=== PATIENT | female | born 1980 | race Caucasian/White ===

== ENCOUNTER 2019-05-07 05:51 | Inpatient (IN) | payer MEDICAID ==
[~2019-05-07] VITALS: Ht 162.6 cm; Wt 77.8 kg
[2019-05-07] MEDS ORDERED: morphine 2 MG INJ IV STA (05:56)
--- NOTE | 2019-05-07 06:07 | ERD ---
ER Documentation Chief Complaint Chief Complaint BIB private EMS from [facility] d/t incomplete AB HPI 39-year-old female presents the emergency department on transfer from a local emergency department for an incomplete miscarriage. Patient states that she was having vaginal bleeding and pelvic pain. She presented to an outside emergency department where an incomplete miscarriage was diagnosed. She was transferred here for OB definitive care. Upon arrival, she is having mild pelvic cramping. She reports no further bleeding. Records from the outside facility were reviewed in detail. ROS All systems reviewed and are negative except as per history of present illness. PMhx/Soc Medical and Surgical Hx: pt denies Medical Hx, pt denies Surgical Hx Hx Alcohol Use: No Hx Substance Use: No Hx Tobacco Use: No Smoking Status: Never smoker FmHx Noncontributory for chief complaint Physical Exam Vitals Vital Signs Date Temp Pulse Resp B/P (MAP) Pulse Ox O2 O2 Flow FiO2 Time Delivery Rate 05/07/19 98.7 84 26 133/86 99 05:53 (102) Physical Exam GENERAL: The patient is well developed and appropriate for usual state of health in no apparent distress HEENT: Pupils equal, round, and reactive to light. EOMI. There is no scleral icterus. NECK: C-spine is soft and supple, there is no meningismus. There is no cervical lymphadenopathy. LUNGS: Clear to auscultation bilaterally. There are no rales, wheezes or rhonchi. HEART: Regular rate and rhythm, no murmurs, clicks, rubs or gallops. ABDOMEN: Soft, non-tender, non-distended. There are bowel sounds in all four quadrants. No rebound or guarding. EXTREMITIES: There is no peripheral cyanosis or edema. No focal swelling or erythema. NEURO: The patient moves all four extremities with 5/5 strength. Cranial nerves II - XII are intact. Normal gait. Alert and oriented SKIN: There is no apparent rash or petechiae. HEME/LYMPHATIC: There is no evidence of excessive bruising or lymphedema. PSYCHIATRIC: The patient does not appear anxious or depressed. Results 24 hrs Current Medications Medications Dose Sig/Oskar Start Time Status Last (Trade) Ordered Route PRN Stop Time Admin Dose Reason Admin Morphine 2 mg ONCE STAT 05/07/19 DC Sulfate IV 05:56 (morphine) 05/07/19 05:57 Procedures/MDM Patient was taken to a room, seen and examined. MSE was completed. Patient remained stable. Arrangements were made for admission. Medical decision makin-year-old female presents the emergency room with incomplete miscarriage. Plan is to continue comfort measures pending operative D&C procedure. Departure Diagnosis: Primary Impression: Incomplete miscarriage Condition: HORTENCIA Ghotra May 07, 2019 06:07
[2019-05-07 06:49] VITALS: BP 149/71; PULSE 77; RESP 20
[2019-05-07 09:57] VITALS: Ht 162.6 cm; Wt 77.8 kg
[2019-05-07] MEDS ORDERED: LACTATED RINGER'S 1,000 ML IV STA (10:27)
[2019-05-07] MEDS ORDERED: morphine 2 MG INJ IV PRN (10:30)
[2019-05-07] MEDS ORDERED: OXYTOCIN 30 UNITS/LR 500 ML IV SCH (10:30)
[2019-05-07] MEDS ORDERED: CEFAZOLIN 2 GM/50 ML (PMX) 50 ML IVPB ONE (11:30)
[2019-05-07 14:44] VITALS: BP 137/79; PULSE 69; RESP 18
[2019-05-07] MEDS ORDERED: OXYCODONE/ACETAMINOPHEN (5/325) TAB PO PRN ×2 (15:00)
[2019-05-07] MEDS ORDERED: IBUPROFEN 800 MG TAB PO PRN (15:00)
--- NOTE | 2019-05-07 15:12 | HP ---
Date/Time of Note Date/Time of Note DATE: 05/07/19 TIME: 15:09 Assessment/Plan VTE Prophylaxis SCD applied (from Nsg): No SCD contraindicated: other (Patient is ambulating) Pharmacological prophylaxis: other (Patient is ambulating) Lines/Catheters IV Catheter Type (from Nrsg): Saline Lock Assessment/Plan Assessment/Plan Status post SAB We will give Methergine p.o. every 6 hours for total of 24 hours Repeat quantitative beta-hCG in a.m. Urine culture pending Result Diagram: 05/07/19 1106 05/07/19 1106 Results 24hrs Laboratory Tests Test 05/07/19 11:06 05/07/19 13:15 White Blood Count 10.0 Red Blood Count 3.94 L Hemoglobin 10.2 L Hematocrit 30.4 L Mean Corpuscular Volume 77.2 L Mean Corpuscular Hemoglobin 25.9 L Mean Corpuscular Hemoglobin Concent 33.6 Red Cell Distribution Width 15.8 H Platelet Count 378 Mean Platelet Volume 9.5 Immature Granulocytes % 0.500 H Neutrophils % 75.2 Lymphocytes % 17.6 Monocytes % 5.5 Eosinophils % 1.0 Basophils % 0.2 Nucleated Red Blood Cells % 0.0 Immature Granulocytes # 0.050 H Neutrophils # 7.5 Lymphocytes # 1.8 Monocytes # 0.6 Eosinophils # 0.1 Basophils # 0.0 Nucleated Red Blood Cells # 0.0 Sodium Level 140 Potassium Level 4.3 Chloride Level 106 Carbon Dioxide Level 24 Anion Gap 10 Blood Urea Nitrogen 5 L Creatinine 0.53 Est Glomerular Filtrat Rate mL/min > 60 Glucose Level 82 Calcium Level 9.1 Total Bilirubin 0.2 Direct Bilirubin 0.00 Indirect Bilirubin 0.2 Aspartate Amino Transf (AST/SGOT) 19 Alanine Aminotransferase (ALT/SGPT) 19 Alkaline Phosphatase 68 Total Protein 6.7 Albumin 3.5 Globulin 3.20 Albumin/Globulin Ratio 1.09 Beta HCG, Quantitative 26232.0 Urine Color YELLOW Urine Clarity CLEAR Urine pH 6.0 Urine Specific [place] 1.014 Urine Ketones NEGATIVE Urine Nitrite NEGATIVE Urine Bilirubin NEGATIVE Urine Urobilinogen NEGATIVE Urine Leukocyte Esterase 2+ H Urine Microscopic RBC 1 Urine Microscopic WBC 2 Urine Squamous Epithelial Cells FEW Urine Hemoglobin 3+ H Urine Glucose NEGATIVE Urine Total Protein NEGATIVE HPI/ROS Admit Date/Time Admit Date/Time May 07, 2019 at 06:08 Hx of Present Illness 39-year-old 4 para 3 status post complete SAB transferred here from [facility] for further management Patient reports that she passed the fetus at [facility] She currently reports minimal vaginal bleeding, patient reports pelvic pain and cramping Patient's history significant for fibroids ROS Constitutional: no complaints, improved Eyes: no complaints ENT: no complaints Respiratory: no complaints Cardiovascular: no complaints Gastrointestinal: no complaints Genitourinary: other (Minimal vaginal bleeding) Musculoskeletal: no complaints Skin: no complaints Neurologic: no complaints Endocrine: no complaints Lymphatic: no complaints Psychological: no complaints, nl mood/affect Immunologic: no complaints PMH/Family/Social Past Medical History Medical History: other (Fibroids) Medications Current Medications Lactated Ringer's 1,000 ml @ 125 mls/hr Q8H STAT IV ; Start 05/07/19 at 10:27; Stop 05/07/19 at 18:26 Morphine Sulfate (morphine) 2 mg Q6H PRN IV pain Last administered on 05/07/19at 11:26; Admin Dose 2 MG; Start 05/07/19 at 10:30 Ibuprofen (Motrin) 800 mg Q8H PRN PO MILD PAIN LEVEL 1-3; Start 05/07/19 at 15:00 Oxycodone/ Acetaminophen (Percocet (5/ 325)) 2 tab Q6H PRN PO SEVERE PAIN; Start 05/07/19 at 15:00 Oxycodone/ Acetaminophen (Percocet (5/ 325)) 1 tab Q6H PRN PO MODERATE PAIN LEVEL 4-6; Start 05/07/19 at 15:00 Coded Allergies: No Known Allergy (Unverified , 05/07/19) Past Surgical History Past Surgical Hx: no surgical history Family History Significant Family History: no pertinent family hx Social History Alcohol Use: none Smoking Status: Never smoker Drug Use: none Exam/Review of Systems Vital Signs Vitals Vital Signs Date Temp Pulse Resp B/P (MAP) Pulse Ox O2 O2 Flow FiO2 Time Delivery Rate 05/07/19 99.0 69 18 137/79 98 Room Air 14:44 (98) Exam Constitutional: alert, oriented, well developed Psych: no complaints, nl mood/affect Head: normocephalic, atraumatic Eyes: nl conjunctiva, EOMI, nl lids, nl sclera, PERRL ENMT: nl external ears & nose, nl lips & teeth, nl nasal mucosa & septum Neck: supple, non-tender Respiratory: clear to auscultation, normal air movement Cardiovascular: regular rate and rhythm, nl pulses Gastrointestinal: soft, nl liver, spleen, non-tender Genitourinary - Female: uterus (Uterus enlarged to 22 weeks size) Musculoskeletal: nl extremities to inspection Extremities: normal pulses Neurological: STEEL ERECTING PUSHER II-XII intact, nl mental status, nl speech, nl strength Skin: nl turgor; No rash or lesions Lymph: nl lymph nodes Additional Comments PROCEDURE: US Pelvis. CLINICAL INDICATION: Incomplete miscarriage. Retained products. TECHNIQUE: Multiple sonographic images of the pelvis were obtained utilizing a transabdominal and endovaginal technique. The images were reviewed on a PACS workstation. COMPARISON: None. FINDINGS: The uterus is anteverted and measures 19.1 x 13.6 x 13.7 cm. There is a bulbous contour to the uterus secondary to an intramural fibroid measuring 9.4 x 9.3 x 9.4 cm. The endometrial stripe complex was not measured but does not appear to be enlarged and there is no hyperemia to suggest retained products. No fluid is seen in the canal. Ovaries were not visualized. No solid pelvic masses seen. There is no free fluid in the pelvis. IMPRESSION: No evidence of retained products of conception. Enlarged fibroid uterus. Nonvisualization ovaries. .Sharif Elias MD, MD Date Time Electronically viewed and signed by .Sharif Elias MD, on 05/07/2019 13:30 .A/ CC: KAREEM JENKINS MD [id number] KAREEM JENKINS MD May 07, 2019 15:12
[2019-05-07] MEDS ORDERED: METHYLERGONOVINE 0.2 MG TAB PO PRN (16:00)
[2019-05-07] MEDS: METHYLERGONOVINE 0.2 MG TAB PO SCH ×2 (18:25→22:02)
[2019-05-07 19:57] VITALS: BP 140/76; PULSE 74; RESP 18
[2019-05-08] VITALS (26 sets, daily range): BP systolic 91–138; BP diastolic 44–77; PULSE 64–82; RESP 16–28
[2019-05-08] MEDS: METHYLERGONOVINE 0.2 MG TAB PO SCH ×4 (04:16→22:05)
[2019-05-08] MEDS ORDERED: BUTORPHANOL 2 MG INJ IV PRN (12:00)
[2019-05-08] MEDS ORDERED: MIDAZOLAM 1 MG/ML 2 ML INJ ONE (16:01)
[2019-05-08] MEDS ORDERED: morphine SULFATE/PF (10 MG/10 ML) INJ ONE (16:01)
--- NOTE | 2019-05-08 16:05 | PREAC ---
Date/Time of Note Date/Time of Note DATE: 05/08/19 TIME: 16:03 Anesthesia Eval and Record Evaluation Time Pre-Procedure Interview DATE: 05/08/19 TIME: 16:00 Age 39 Sex female NPO: 8 hrs Preoperative diagnosis iup @ 12 wks., sab, incomplete Planned procedure suction D&C Past Medical History Past Medical History: Includes : Other (sab) Surgery & Anesthesia Issues No known issue Meds Anticoagulation: No Beta Deanna within 24 hr: No Reason Beta Deanna not given: Pt. not on B-Deanna Current Medications Ibuprofen (Motrin) 800 mg Q8H PRN PO MILD PAIN LEVEL 1-3; Start 05/07/19 at 15:00 Oxycodone/ Acetaminophen (Percocet (5/ 325)) 2 tab Q6H PRN PO SEVERE PAIN; Start 05/07/19 at 15:00 Oxycodone/ Acetaminophen (Percocet (5/ 325)) 1 tab Q6H PRN PO MODERATE PAIN LEVEL 4-6 Last administered on 05/07/19at 17:08; Admin Dose 1 TAB; Start 05/07/19 at 15:00 Methylergonovine Maleate (Methergine) 0.2 mg Q6H PO Last administered on 05/08/19at 04:16; Admin Dose 0.2 MG; Start 05/07/19 at 16:00 Butorphanol Tartrate (Stadol) 1 mg Q4H PRN IV PAIN Last administered on 05/08/19at 13:25; Admin Dose 1 MG; Start 05/08/19 at 12:00 Meds reviewed: Yes Allergies Coded Allergies: No Known Allergy (Unverified , 05/07/19) Allergies Reviewed: Yes Labs/Studies Labs Reviewed: Reviewed by anesthesiologist Result Diagram: 05/08/19 1026 05/08/19 1025 Laboratory Tests 05/08/19 10:25 05/08/19 10:26 test: Positive Studies: ECG (n/a), CXR (n/a) Pre-procedure Exam Last vitals Vital Signs Date Temp Pulse Resp B/P (MAP) Pulse Ox O2 O2 Flow FiO2 Time Delivery Rate 05/08/19 98.4 72 16 132/68 96 Room Air 14:15 (89) Airway: Adequate mouth opening, Adequate thyromental dist Mallampati: Mallampati II Teeth: Normal Lung: Normal Heart: Normal ASA Physical Status ASA physical status: 2 Emergency: E Planned Anesthetic General/MAC: MAC Neuraxial: Spinal Planned Pain Management Sub-arachniod narcotics, Parenteral pain med Pre-operative Attestations Prior to commencing anesthesia and surgery, the patient was re-evaluated, there was verification of: *The patient's identity *The results of appropriate recent lab work and preoperative vital signs *The above evaluation not changing prior to induction *Anesthetic plan, risk benefits, alternative and complications discussed with patient/family; questions answered; patient/family understands, accepts and wishes to proceed. [employer] used CLARENCE PONCE MD May 08, 2019 16:05
[2019-05-08] MEDS ORDERED: ONDANSETRON 4 MG INJ ONE (16:23)
[2019-05-08] MEDS ORDERED: CEFAZOLIN 1 GM INJ ONE (16:23)
[2019-05-08] MEDS ORDERED: KETOROLAC 30 MG INJ IV PRN ×2 (16:30→17:00)
[2019-05-08] MEDS ORDERED: MIDAZOLAM 1 MG/ML 2 ML INJ IV PRN (16:30)
[2019-05-08] MEDS ORDERED: MEPERIDINE 25 MG INJ IV PRN (16:30)
[2019-05-08] MEDS ORDERED: DIPHENHYDRAMINE 50 MG INJ IV PRN ×2 (16:30→17:00)
[2019-05-08] MEDS ORDERED: ONDANSETRON 4 MG INJ IV PRN ×2 (16:30→17:00)
[2019-05-08] MEDS ORDERED: OXYTOCIN 10 UNIT INJ ONE (16:32)
--- NOTE | 2019-05-08 16:32 | QN ---
Documentation Comment H&P update 42 yo with incomplete consented for D&C&Suction KULDIP RODRIGUEZ M.D. May 08, 2019 16:32
--- NOTE | 2019-05-08 16:46 | OPPN ---
Date/Time of Note Date/Time of Note DATE: 05/08/19 TIME: 16:43 Operative Report Preoperative Diagnosis Incomplete Postoperative Diagnosis same Operation/Procedure Performed D&C&Suction Surgeon see signature line daycare assistant none Anesthesia: general Estimated blood loss: 10 - 50 ml's Transfusion Required none Specimen POC Grafts/Implants none Complications none KULDIP RODRIGUEZ M.D. May 08, 2019 16:46
--- NOTE | 2019-05-08 16:49 | PAC ---
Date/Time of Note Date/Time of Note DATE: 05/08/19 TIME: 16:49 Post-Anesthesia Notes Post-Anesthesia Note Last documented vital signs Vital Signs Date Temp Pulse Resp B/P (MAP) Pulse Ox O2 O2 Flow FiO2 Time Delivery Rate 05/08/19 98.4 72 16 132/68 96 Room Air 14:15 (89) Activity: WNL Respiratory function: WNL Cardiovascular function: WNL Mental status: Baseline Pain reasonably controlled: Yes Hydration appropriate: Yes Nausea/Vomiting absent: Yes CLARENCE PONCE MD May 08, 2019 16:49
--- NOTE | 2019-05-08 16:54 | OPPN ---
Date/Time of Note Date/Time of Note DATE: 05/09/19 TIME: 00:05 Anesthesia Follow up Anesthesia Follow up Last documented vital signs Vital Signs Date Temp Pulse Resp B/P (MAP) Pulse Ox O2 O2 Flow FiO2 Time Delivery Rate 05/08/19 98.4 72 16 132/68 96 Room Air 14:15 (89) Respiratory function: WNL Cardiovascular function: WNL Comments pt. pod #1. min. bt pain. min. n/v. min. need for bt pain meds ie. nsaids/opiates. ambulating. O: vss, afeb. A: min. bt pain sec. it mso4. P: no complications. CLARENCE PONCE MD May 08, 2019 16:54
[2019-05-08] MEDS ORDERED: ACETAMINOPHEN 500 MG TAB PO PRN (17:00)
[2019-05-08] MEDS ORDERED: NALOXONE (0.4 MG/ML) INJ IV PRN (17:00)
[2019-05-08] MEDS ORDERED: HYDROmorphONE 0.5 MG/0.5 ML SYG IV PRN ×2 (17:00)
[2019-05-08] MEDS ORDERED: NALBUPHINE HCL (10 MG/1 ML) INJ IV PRN (17:00)
[2019-05-08] MEDS ORDERED: HYDROCODONE/APAP (5/325) TAB PO PRN (17:00)
--- NOTE | 2019-05-08 17:51 | OPR ---
DATE OF OPERATION: PREOPERATIVE DIAGNOSIS: Incomplete . POSTOPERATIVE DIAGNOSIS: Incomplete . PROCEDURE: Dilation and curettage and suction. ANESTHESIA: General ATTENDING SURGEON: Dr. Queen. ANESTHESIOLOGIST: ____ ESTIMATED BLOOD LOSS: Minimal. TECHNIQUE: The patient was taken to the operating room, where general anesthesia was found to be glen quate. The patient was placed in dorsal lithotomy position. After prep and drape, the weighted spec ulum was placed inside the vaginal vault. Anterior lip of the cervix was grasped by single-tooth ten aculum. Cervix was dilated by Leahy dilators. The cervix was 2 cm, open. Suction size 8 was insert ed. Intrauterine cavity was suctioned. Sharp curettage of endometrial cavity was done. Hemostasis achieved. The patient tolerated the procedure well and was transferred to the recovery room in stabl e condition. There was no complication regarding this surgery. Dictated By: KULDIP LOCKETT/JACK Conf#: [id number] DID#: [id number] CC: LIDIA CISSE MD;*EndCC*
--- NOTE | 2019-05-08 17:53 | HP ---
DATE OF ADMISSION: 05/07/2019 HISTORY OF PRESENT ILLNESS: This is a 39-year-old with diagnosis of incomplete . admitted th rough the emergency room. The patient has some retained products of conception, and the hCG dropped from yesterday to 50,000 to only 43,000 today. The patient was consented for D and C and suction. A lternatives discussed. Risks and benefits of alternatives discussed. PAST MEDICAL HISTORY: Denies. PAST SURGICAL HISTORY: Denies. ALLERGIES: NKDA. OBSTETRICAL AND GYNECOLOGIC HISTORY: The patient has history of fibroid uterus. ASSESSMENT AND PLAN: A 39-year-old with diagnosis of incomplete . Discussed with the patien t surgical risks and benefits of procedure. The patient signed the consent, was taken to the operati ng room. Dictated By: KULDIP RODRIGUEZ MD RG/NTS Conf#: [id number] DID#: [id number] CC: LIDIA CISSE MD;*EndCC*
[2019-05-08] MEDS: LACTATED RINGER'S 1,000 ML IV SCH (17:56)
[2019-05-09 02:32] VITALS: BP 98/55; PULSE 70; RESP 18
[2019-05-09] MEDS: METHYLERGONOVINE 0.2 MG TAB PO SCH ×2 (04:13→09:21)
[2019-05-09 08:00] VITALS: BP 107/53; PULSE 80; RESP 16
[2019-05-09 14:30] VITALS: BP 106/58; PULSE 75; RESP 20
[2019-05-09] MEDS: LACTATED RINGER'S 1,000 ML IV SCH (17:42)
--- NOTE | 2019-05-09 19:30 | QN ---
Documentation Comment Postop day 1 Status post suction D&C Patient stable and reports mild vaginal bleeding Tmax 100.4 and elevated WBC VS - Last 72 Hours, by Label Date Temp Pulse Resp B/P (MAP) Pulse Ox O2 O2 Flow FiO2 Time Delivery Rate 05/09/19 100.4 75 20 106/58 96 14:30 (74) 05/09/19 98.9 80 16 107/53 96 08:00 (71) 05/09/19 98.9 70 18 98/55 (69) 97 02:32 05/08/19 98.4 82 16 107/58 96 20:33 (74) 05/08/19 99.3 64 16 108/58 97 Room Air 18:58 (75) 05/08/19 68 22 108/62 98 Room Air 18:27 (77) 05/08/19 97.6 64 20 110/58 97 Room Air 18:22 (75) 05/08/19 74 22 110/65 98 Room Air 18:17 (80) 05/08/19 68 20 103/58 97 Room Air 18:12 (73) 05/08/19 76 28 102/55 97 Room Air 18:07 (71) 05/08/19 68 18 102/55 96 Room Air 18:02 (71) 05/08/19 68 17 103/52 96 Room Air 17:57 (69) 05/08/19 80 21 102/54 97 Room Air 17:52 (70) 05/08/19 68 18 103/49 96 Room Air 17:47 (67) 05/08/19 74 17 105/55 97 Room Air 17:42 (72) 05/08/19 70 19 103/51 96 Room Air 17:37 (68) 05/08/19 70 19 101/53 97 Room Air 17:32 (69) 05/08/19 70 20 101/58 97 Room Air 17:27 (72) 05/08/19 72 21 101/55 98 Room Air 17:22 (70) 05/08/19 70 20 98/52 (67) 97 Room Air 17:17 05/08/19 72 19 96/46 (63) 97 Room Air 17:12 05/08/19 72 20 95/45 (62) 97 Room Air 17:07 05/08/19 70 19 98/46 (63) 97 Room Air 17:02 05/08/19 70 21 93/47 (62) 97 Room Air 16:57 05/08/19 70 21 91/47 (62) 97 Room Air 16:52 05/08/19 98.0 68 20 111/44 99 Room Air 16:47 (66) 05/08/19 98.4 72 16 132/68 96 Room Air 14:15 (89) 05/08/19 98.5 70 16 138/77 99 Room Air 08:00 (97) 05/08/19 98.1 72 18 135/76 97 01:48 (95) 05/07/19 98.1 74 18 140/76 98 19:57 (97) 05/07/19 99.0 69 18 137/79 98 Room Air 14:44 (98) 05/07/19 98.2 77 20 149/71 100 06:49 (97) 05/07/19 98.8 86 19 140/85 97 Room Air 06:24 (103) 05/07/19 98.7 84 26 133/86 99 05:53 (102) Hematology - 72 Hrs Test 05/07/19 11:06 05/08/19 10:26 05/09/19 15:59 Hematocrit 30.4 % (37.0-47.0) 32.5 % (37.0-47.0) 31.0 % (37.0-47.0) L L L Hemoglobin 10.2 10.9 10.2 g/dl (12.0-16.0) L g/dl (12.0-16.0) g/dl (12.0-16.0) L L Mean Corpuscular 25.9 pg (29.0-33.0) 25.4 25.4 Hemoglobin L pg (29.0-33.0) L pg (29.0-33.0) L Mean Corpuscular 33.6 33.5 32.9 Hemoglobin Concent g/dl (32.0-37.0) g/dl (32.0-37.0) g/dl (32.0-37.0) Mean Corpuscular 77.2 75.8 77.3 Volume fl (82.0-101.0) L fl (82.0-101.0) L fl (82.0-101.0) L Mean Platelet 9.5 fl (7.4-10.4) 9.6 fl (7.4-10.4) 9.4 fl (7.4-10.4) Volume Platelet Count 378 394 400 10^3/UL (140-415) 10^3/UL (140-415) 10^3/UL (140-415) Red Blood Count 3.94 4.29 4.01 10^6/ul (4.20-5.40) 10^6/ul (4.20-5.40 10^6/ul (4.20-5.40 L ) ) L Red Cell 15.8 % (11.5-14.5) 15.3 % (11.5-14.5) 15.4 % (11.5-14.5) Distribution Width H H H White Blood Count 10.0 11.2 13.9 10^3/ul (4.8-10.8) 10^3/ul (4.8-10.8) 10^3/ul (4.8-10.8) H #H Chemistry Test 05/07/19 11:06 05/08/19 05:00 05/08/19 10:25 Sodium Level 140 mmol/L (135-144) 137 mmol/L (135-144) Potassium Level 4.3 mmol/L (3.5-5.1) 3.4 mmol/L (3.5-5.1) L Chloride Level 106 mmol/L (97-110) 104 mmol/L (97-110) Carbon Dioxide 24 mmol/L (21-31) 22 mmol/L (21-31) Level Anion Gap 10 (5-13) 11 (5-13) Blood Urea Nitrogen 5 mg/dl (7-20) L 5 mg/dl (7-20) L Creatinine 0.53 0.51 mg/dl (0.44-1.00) mg/dl (0.44-1.00) Est Glomerular > 60 mL/min (>60) > 60 mL/min (>60) Filtrat Rate mL/min Glucose Level 82 mg/dl (70-220) 142 mg/dl (70-220) # Calcium Level 9.1 mg/dl (8.4-10.2) 9.4 mg/dl (8.4-10.2) Total Bilirubin 0.2 mg/dl (0.2-1.3) 0.2 mg/dl (0.2-1.3) Direct Bilirubin 0.00 0.00 mg/dl (0.00-0.20) mg/dl (0.00-0.20) Indirect Bilirubin 0.2 mg/dl (0-1.1) 0.2 mg/dl (0-1.1) Aspartate Amino 19 IU/L (15-46) 23 IU/L (15-46) Transf (AST/SGOT) Alanine 19 IU/L (13-69) 16 IU/L (13-69) Aminotransferase (AL T/SGPT) Alkaline 68 IU/L (42-121) 77 IU/L (42-121) Phosphatase Total Protein 6.7 g/dl (6.1-8.1) 7.4 g/dl (6.1-8.1) Albumin 3.5 g/dl (3.3-4.9) 3.7 g/dl (3.3-4.9) Globulin 3.20 g/dl (1.3-3.2) 3.70 g/dl (1.3-3.2) H Albumin/Globulin 1.09 1.00 Ratio Beta HCG, 03184.0 mIU/ml 16921.0 mIU/ml Quantitative Microbiology URINE CULTURE Preliminary Organism 1 STAPHYLOCOCCUS SPECIES COLONY COUNT 20,000 - 30,000 CFU/ml Assessment and plan; Ancef 1 g IV every 8 hours for UTI CBC in a.m. Prescription for Keflex was written and placed in the chart to be given to the patient upon discharge Patient needs to be seen by social service Once cleared by social service and afebrile for 24 hours she can be discharged home KAREEM JENKINS MD May 09, 2019 19:30
[2019-05-09 20:15] VITALS: BP 119/59; PULSE 63; RESP 18
[2019-05-09] MEDS ORDERED: CEPHALEXIN 500 MG CAP PO SCH (21:00)
[2019-05-09] MEDS: CEFAZOLIN 1 GM/50 ML (PMX) 50 ML IVPB SCH (23:09)
[2019-05-10 02:10] VITALS: BP 109/59; PULSE 79; RESP 18
[2019-05-10] MEDS: CEFAZOLIN 1 GM/50 ML (PMX) 50 ML IVPB SCH ×2 (06:10→13:53)
[2019-05-10 07:25] VITALS: BP 127/75; PULSE 65; RESP 16
[2019-05-10 14:09] VITALS: BP 122/63; PULSE 72; RESP 16
[2019-05-10] MEDS: LACTATED RINGER'S 1,000 ML IV SCH (16:05)
== END 2019-05-10 17:45 | disposition home or self-care (01) | DRG 770 ==
LOC: E/R 05:51 → 5EC 06:08 → PP2 05-08 07:20
PROVIDERS: ADMIT Obstetrics & Gynecology; ATTEND Obstetrics & Gynecology
PROC: 10D17ZZ Extraction of Products of Conception, Retained, Via Natural or Artificial Opening (ICD-10-PCS; principal; 2019-05-08 16:00)
DX: O03.4 Incomplete spontaneous abortion without complication (principal); N39.0 Urinary tract infection, site not specified
CPT/HCPCS: 76801; 76817; 80053; 81001; 84702; 85025; 86900; 86901; 87086; 88305; 96374; J0595; J0690; J1885; J2250; J2270; J2274; J2405; J2590; J7120